=== PATIENT | female | born 1950 | race Caucasian/White ===

== ENCOUNTER 2016-08-08 12:39 | Emergency (ER) | payer MEDICARE, BC ==
[2016-08-08 13:08] VITALS: BP 149/104
--- NOTE | 2016-08-08 13:34 | UC ---
Cardiac HPI - HPI Summary HPI Summary: 66 year old female with complaints of left sided chest pain and left arm tightness while resting in bed watching tv this am. She reports she was evaluated by cardiology 2 years ago for similar symptoms and cleared. She experienced this pain while walking the dog in the morning 3 - 4 times a week for "awhile" but it passes with rest. She is also feeling dizzy. Dizziness onset with rolling over in bed 4 mornings ago. Hx of vertigo and did some maneuvers with mild relief. Having left side face and ear congestion. Pain and dizziness have resolved at this time. Denies fever or chills. Denies difficulty breathing. Denies nausea or vomiting - History of Current Complaint Chief Complaint: UC Stated Complaint: DIZZY Time Seen by Provider: 08/08/16 13:12 Hx Obtained From: Patient Onset/Duration: Sudden Onset, Lasting Hours - this morning, Resolved Initial Severity: Moderate Current Severity: None Chest Pain Location: Left Anterior - radiated into left arm Character: Tightness Aggravating: Nothing Alleviating: Nothing Associated Signs & Symptoms: Positive: Chest Pain, Dizziness. Negative: Vision Changes, Anxiety, Recent Stress, Headaches, Numbness, Tingling, SOB, Swelling, Syncope, Fever, Diaphoresis, Nausea/Vomiting, Palpitations, Cough, Hemoptysis, Back Pain, Abdominal Pain - Risk Factors Pulmonary Embolism Risk Factors: Negative Cardiac Risk Factors: Hypertension, Family History - father first MN at age 52 Atrial Fibrillation: Hypertension TAD Risk Factors: Hypertension AMI/ACS Risk Factors: Hypertension - Allergy/Home Medications Allergies/Adverse Reactions: Allergies Allergy/AdvReac Type Severity Reaction Status Date / Time Amoxicillin Allergy Hives Verified 08/08/16 13:01 Flu Virus Vaccine Allergy HIVES, Verified 08/08/16 13:01 SWELLING Indomethacin [From Indocin] Allergy disoriented Verified 08/08/16 13:01 PMH/Surg Hx/FS Hx/Imm Hx Previously Healthy: Yes Endocrine History Of: Denies: Diabetes, Thyroid Disease Cardiovascular History Of: Reports: Cardiac Disorders - MVP, Hypertension - ON MEDS Denies: Pacemaker/ICD Respiratory History Of: Reports: COPD, Asthma, Pneumonia GI/ History Of: Reports: Gastrointestinal Bleed Denies: Ulcer, Renal Disease Cancer History Of: Denies: Breast Cancer - Surgical History Surgical History: Yes Surgery Procedure, Year, and Place: Hysterectomy. SIGMOIDECTOMY. Tonsils - Family History Known Family History: Positive: Cardiac Disease - father at age 62 of [place]. His first [place] was age 52, Hypertension - Social History Alcohol Use: Daily Alcohol Amount: 2 glasses wine/day Substance Use Type: None Smoking Status (MU): Former Smoker Amount Used/How Often: PACK A DAY Have You Smoked in the Last Year: No When Did the Patient Quit Smoking/Using Tobacco: 1983 - Immunization History Most Recent Influenza Vaccination: none in 2013, ALLERGY Most Recent Tetanus Shot: 5-6 years ago Most Recent Pneumonia Vaccination: 2-3 years ago Review of Systems Constitutional: Fatigue Skin: Negative Eyes: Negative ENT: Ear Ache - left ear pressure Respiratory: Negative Cardiovascular: Chest Pain - tightness Gastrointestinal: Negative Genitourinary: Negative, Dysuria Motor: Negative Neurovascular: Negative Musculoskeletal: Negative Neurological: Negative Psychological: Negative All Other Systems Reviewed And Are Negative: Yes Physical Exam Triage Information Reviewed: Yes Appearance: No Pain Distress, Well-Nourished, Ill-Appearing - mildly Vital Signs: Initial Vital Signs Temp 97.1 F 08/08/16 13:02 Pulse 83 08/08/16 13:02 Resp 18 08/08/16 13:02 BP 149/104 08/08/16 13:02 Pulse Ox 98 08/08/16 13:02 Vital Signs Reviewed: Yes Eyes: Positive: Conjunctiva Clear. Negative: Discharge ENT: Positive: Hearing grossly normal, Pharynx normal, TM dull - bilaterally, Other: - no sinus pain or pressure with palpation. Negative: Nasal congestion, Nasal drainage, Tonsillar swelling Neck: Positive: Supple, Nontender, No Lymphadenopathy Respiratory: Positive: Lungs clear, Normal breath sounds Cardiovascular: Positive: RRR, No Murmur Musculoskeletal: Positive: Strength Intact, ROM Intact Neurological: Positive: Alert, Muscle Tone Normal Psychological: Positive: Age Appropriate Behavior - pleasant and cooperative Skin: Negative: rashes, breakdown - Assessment/Plan Course Of Treatment: EKG. transfer to ER for further evaluation and work up - Differential Diagnoses - Chest Pain Differential Diagnosis/HQI/PQRI: ACS - Differential Diagnoses - Hypertension Differential Diagnosis/HQI PQRI: Hypertension, Myocardial Infarction - Differential Diagnoses - Palpitations Differential Diagnosis/HQI/PQRI: Chronic Obstructive Pulmonary Disease - Clinical Impression Provider Diagnoses: Chest pain. Dizziness. Bilateral serous otitis - Physician Notifications Discussed Patient Care With: [place] [facility] [place] Discussed With Above Provider: 13:46 Instructed by Provider To: Transfer - via private car as patient wishes to emergency department Discharge - Discharge Plan Condition: Stable Disposition: [facility] Patient Education Materials: Serous Otitis Media (ED)
== END 2016-08-08 14:02 | disposition short-term general hospital (02) ==
LOC: UCEAST 12:39
DX: R07.89 Other chest pain (principal); R42 Dizziness and giddiness; H65.93 Unspecified nonsuppurative otitis media, bilateral; I10 Essential (primary) hypertension; I34.1 Nonrheumatic mitral (valve) prolapse; Z87.891 Personal history of nicotine dependence
CPT/HCPCS: 93005; 99212; G0463

== ENCOUNTER 2016-08-08 14:13 | Observation (INO) | payer MEDICARE, BC ==
[2016-08-08 15:59] LABS: Hematocrit 43 % (35-47); Hemoglobin 15.1 g/dl (12.0-16.0); Mean Corpuscular HGB Conc 35 g/dl (31-36); Mean Corpuscular Hemoglobin 34 pg (27-31); Mean Corpuscular Volume 96 fL (80-97); Mean Platelet Volume 7 um3 (7.4-10.4); Red Blood Count 4.47 10^6/ul (4.0-5.4); Red Cell Distribution Width 12 % (10.5-15); White Blood Count 7.1 10^3/ul (3.5-10.8)
--- NOTE | 2016-08-08 16:08 | RAD ---
Indication: Chest pain. Single frontal view of the chest performed at 1600 hours was reviewed. Comparison is made with previous exam dated October 13, 2014. No mediastinal shift is noted. Heart is of normal size and configuration. Lung umanzor appear clear. IMPRESSION: NO ACTIVE CARDIOPULMONARY DISEASE IS NOTED.
[2016-08-08 16:23] LABS: Albumin 4.3 g/dL (3.2-5.2); BUN/Creatinine Ratio 19.2 (8-20); Calcium 10.2 mg/dL (8.6-10.3); EGFR Non-African American 79.3 (>60); Globulin 3.3 g/dL (2-4); Magnesium 1.7 mg/dL (1.9-2.7); Potassium 3.3 mmol/L (3.5-5.0); Total Bilirubin 0.4 mg/dL (0.2-1.0); Total Protein 7.6 g/dL (6.4-8.9)
[2016-08-08] MEDS ORDERED: Potassium Chlor TAB* 20 MEQ TAB.ER PO ONE (17:15)
[2016-08-08] MEDS ORDERED: Nitroglycerin TAB 0.4 MG* 0.4 MG TAB SL ONE (17:17)
--- NOTE | 2016-08-08 17:29 | ED ---
Tarik Tinsley Adam, scribed for Luke Zaldivar MD on 08/08/16 at 1558 . Complex/Multi-Sys Presentation - HPI Summary HPI Summary: Pt is a 66 year old female presenting with CP and dizziness, nausea and diaphoresis. She states that she began feeling dizzy 3 days ago and thought it was vertigo. Since then she began having palpitations, particularly at night, and over the past couple of days she has been having intermittent chest tightness at rest. The pain is described as a 2/10 in severity and it radiates to the left arm. She has experienced pain like this before but typically when she is exerting herself. She came to the ED today because the CP has been occurring at rest. She also c/o nausea, SOB, and diaphoresis. She denies any edema. PMHx includes HTN, mitral valve prolapse, and COPD. Former tobacco user. FMHx of UT and CVA. - History Of Current Complaint Chief Complaint: EDChestPainROMI Time Seen by Provider: 08/08/16 15:49 Hx Obtained From: Patient Onset/Duration: Gradual Onset, Lasting Days, Still Present Timing: Intermittent, Lasting: Severity Currently: Moderate Severity Initially: Moderate Location: Pain At: - Chest, left arm Associated Signs And Symptoms: Positive: Dizziness, SOB, Nausea, Diaphoresis - Allergies/Home Medications Allergies/Adverse Reactions: Allergies Allergy/AdvReac Type Severity Reaction Status Date / Time Amoxicillin Allergy Hives Verified 08/08/16 15:04 Flu Virus Vaccine Allergy HIVES, Verified 08/08/16 15:04 SWELLING Indomethacin [From Indocin] Allergy disoriented Verified 08/08/16 15:04 PMH/Surg Hx/FS Hx/Imm Hx Endocrine/Hematology History: Denies: Hx Diabetes, Hx Thyroid Disease Cardiovascular History: Reports: Hx Hypertension - ON MEDS, Hx Valvular Heart Disease - MITRAL VALVE PROLAPSE, Other Cardiovascular Problems/Disorders - MITRAL VALVE Denies: Hx Pacemaker/ICD Respiratory History: Reports: Hx Asthma, Hx Chronic Obstructive Pulmonary Disease (COPD), Hx Pneumonia Denies: Hx Sleep Apnea, Other Respiratory Problems/Disorders GI History: Reports: Hx Diverticulosis, Hx Gastroesophageal Reflux Disease, Hx Gastrointestinal Bleed, Hx Hiatal Hernia, Other GI Disorders - DIVERTICULITIS Denies: Hx Ulcer History: Reports: Other Problems/Disorders - right kidney cyst(?) Denies: Hx Renal Disease Musculoskeletal History: Reports: Hx Arthritis - THUMBS, Hx Back Problems - TENS Denies: Hx Rheumatoid Arthritis, Hx Osteoporosis Sensory History: Reports: Hx Contacts or Glasses Denies: Hx Hearing Aid Opthamlomology History: Reports: Hx Contacts or Glasses Neurological History: Reports: Other Neuro Impairments/Disorders - TRANSIENT GLOBAL AMNESIA Psychiatric History: Denies: Hx Panic Disorder - Cancer History Hx Chemotherapy: No Hx Radiation Therapy: No - Surgical History Surgery Procedure, Year, and Place: Hysterectomy. SIGMOIDECTOMY. Tonsils Hx Anesthesia Reactions: No Infectious Disease History: No Infectious Disease History: Denies: Hx Hepatitis, Hx Human Immunodeficiency Virus (HIV), Traveled Outside the [place] in Last 30 Days - Family History Known Family History: Positive: Cardiac Disease - father at age 62 of [place]. His first [place] was age 52, Hypertension, Other - CVA - Social History Occupation: Retired Lives: With Family - Alcohol Use: Daily Alcohol Amount: 2 glasses wine/day Hx Substance Use: No Substance Use Type: Reports: None Hx Tobacco Use: Yes Smoking Status (MU): Former Smoker Amount Used/How Often: PACK A DAY Have You Smoked in the Last Year: No Review of Systems Positive: Skin Diaphoresis Positive: Chest Pain Positive: Shortness Of Breath Positive: Nausea Neurological: Other - Dizziness All Other Systems Reviewed And Are Negative: Yes Physical Exam - Summary Physical Exam Summary: VITAL SIGNS: Reviewed. GENERAL: Patient is a well developed and nourished female who is lying comfortable in the stretcher. Patient is not in any acute respiratory distress. HEAD AND FACE: No signs of trauma. No ecchymosis, hematomas or skull depressions. No sinus tenderness. EYES: PERRLA, EOMI x 2, No injected conjunctiva, no nystagmus. EARS: Hearing grossly intact. Ear canals and tympanic membranes are within normal limits. MOUTH: Oropharynx within normal limits. NECK: Supple, trachea is midline, no adenopathy, no JVD, no carotid bruit, no c- spine tenderness, neck with full ROM. CHEST: Symmetric, no tenderness at palpation LUNGS: Clear to auscultation bilaterally. No wheezing or crackles. CVS: Regular rate and rhythm, S1 and S2 present, no murmurs or gallops appreciated. ABDOMEN: Soft, non-tender. No signs of distention. No rebound no guarding, and no masses palpated. Bowel sounds are normal. EXTREMITIES: FROM in all major joints, no edema, no cyanosis or clubbing. NEURO: Alert and oriented x 3. No acute neurological deficits. Speech is normal and follows commands. SKIN: Dry and warm Triage Information Reviewed: Yes Vital Signs On Initial Exam: Initial Vitals Temp Pulse Resp BP Pulse Ox 97.6 F 78 18 166/92 97 08/08/16 15:03 08/08/16 15:03 08/08/16 15:03 08/08/16 15:03 08/08/16 15:03 Vital Signs Reviewed: Yes - [place] Coma Scale Coma Scale Total: 15 Diagnostics - Vital Signs Vital Signs Temp Pulse Resp BP Pulse Ox 08/08/16 15:03 97.6 F 78 18 166/92 97 - Laboratory Lab Results: Lab Results 08/08/16 08/08/16 08/08/16 Range/Units 15:49 15:49 15:49 WBC 7.1 (3.5-10.8) 10^3/ul RBC 4.47 (4.0-5.4) 10^6/ul Hgb 15.1 (12.0-16.0) g/dl Hct 43 (35-47) % MCV 96 (80-97) fL MCH 34 H (27-31) pg MCHC 35 (31-36) g/dl RDW 12 (10.5-15) % Plt Count 282 (150-450) 10^3/ul MPV 7 L (7.4-10.4) um3 Neut % (Auto) 63.7 (38-83) % Lymph % (Auto) 26.6 (25-47) % [place] % (Auto) 7.6 (1-9) % Eos % (Auto) 1.4 (0-6) % Baso % (Auto) 0.7 (0-2) % Absolute Neuts (auto) 4.5 (1.5-7.7) 10^3/ul Absolute Lymphs (auto) 1.9 (1.0-4.8) 10^3/ul Absolute Monos (auto) 0.5 (0-0.8) 10^3/ul Absolute Eos (auto) 0.1 (0-0.6) 10^3/ul Absolute Basos (auto) 0 (0-0.2) 10^3/ul Absolute Nucleated RBC 0.01 10^3/ul Nucleated RBC % 0.2 Sodium 133 (133-145) mmol/L Potassium 3.3 L (3.5-5.0) mmol/L Chloride 96 L (101-111) mmol/L Carbon Dioxide 29 (22-32) mmol/L Anion Gap 8 (2-11) mmol/L BUN 14 (6-24) mg/dL Creatinine 0.73 (0.51-0.95) mg/dL Est GFR ( Amer) 102.0 (>60) Est GFR (Non-Af Amer) 79.3 (>60) BUN/Creatinine Ratio 19.2 (8-20) Glucose 99 (70-100) mg/dL Calcium 10.2 (8.6-10.3) mg/dL Magnesium 1.7 L (1.9-2.7) mg/dL Total Bilirubin 0.40 (0.2-1.0) mg/dL AST 19 (13-39) U/L ALT 18 (7-52) U/L Alkaline Phosphatase 87 (34-104) U/L CK-MB (CK-2) 1.0 (0.6-6.3) ng/mL Myoglobin 22.6 (14.3-65.8) ng/mL Troponin I 0.00 (<0.04) ng/mL B-Natriuretic Peptide 12 ( - 100) pg/mL Total Protein 7.6 (6.4-8.9) g/dL Albumin 4.3 (3.2-5.2) g/dL Globulin 3.3 (2-4) g/dL Albumin/Globulin Ratio 1.3 (1-3) Result Diagrams: 08/08/16 15:49 08/08/16 15:49 Lab Statement: Any lab studies that have been ordered have been reviewed, and results considered in the medical decision making process. - Radiology CXR Xray Interpretation: No Acute Changes Radiology Interpretation Completed By: Radiologist - EKG 15:11 Cardiac Rate: NL - 66 BPM - Additional Comments Diagnostic Additional Comments: Troponin I - 0.00 Complex Multi-Symp Course/Dx Course Of Treatment: 17:20 - Hospitalist accepts patient for admission. Assessment/Plan: Pt is a 66 year old female presenting with CP and dizziness, nausea and diaphoresis. She states that she began feeling dizzy 3 days ago and thought it was vertigo. Since then she began having palpitations, particularly at night, and over the past couple of days she has been having intermittent chest tightness at rest. Blood work WNL except for K+ 3.4. She was given KCL. Troponin is 0.0. EKG shows no SON. CXR shows no acute pathology. In the ED course she was Aspirin. She developed another episode of CP at rest in the ED therefore she was given nitroglycerin and second EKG shows no SON. I discuss my physical exam, findings and test results with Dr. Smith from the hospitalist services and she agrees to admit patient to his services. Patient is hemodynamically stable alert and oriented x 3. - Diagnoses Differential Diagnoses/HQI/PQRI: Cardiac Ischemia Provider Diagnoses: Chest pain r/o AVS Discharge - Discharge Plan Condition: Stable Disposition: ADMITTED TO [facility] The documentation as recorded by the Tarik winston Adam accurately reflects the service I personally performed and the decisions made by me, Luke Zaldivar MD.
[2016-08-08] MEDS ORDERED: Omeprazole CAP* 20 MG PO SCH (21:00)
--- NOTE | 2016-08-08 21:08 | HP ---
HISTORY AND PHYSICAL: DATE OF ADMISSION: 08/08/16 PRIMARY CARE PROVIDER: Dr. Joiner. CHIEF COMPLAINT: Dizziness and chest pain. HISTORY OF PRESENT ILLNESS: Ms. Forbes is a 66-year-old female who states that she began feeling unwell either Saturday or Saturday night of this past week. She states that she woke up in the middle of the night with fluttering in her chest. On Saturday, she states that she woke up feeling dizzy. She felt that that this is likely her vertigo. She states that she felt very tired all day long and just in general felt unwell. She states that she tried the Maurice maneuver several times without any success. The patient states that when she is up and about, she feels off balance. She states that this is her only neurologic symptom. She does state that this is different from the last time she had vertigo as at that time everything seemed to spin. The patient has had no focal weakness, slurred speech, droopy face or any other concerning neurologic symptoms. The patient states each morning she walks the dogs. She usually developed chest pain that last 4 to 5 minutes while doing this. She states the pain resolved on its own. She states this morning she woke up and she had tightness in the left side of her chest radiating down to her left elbow. She states she was concerned because this occurred at rest as opposed to with ambulation. She felt very drained today. She had some mild shortness of breath with the associated chest tightness and states that she still feels slightly off balance when she is up and about. This morning she also felt pressure in the left side of her face. PAST MEDICAL HISTORY: 1. Hypertension. 2. Diverticulosis/diverticulitis. 3. Asthma. PAST SURGICAL HISTORY: 1. Sigmoidectomy for diverticulosis. 2. Hysterectomy. 3. Tonsillectomy. MEDICATIONS: 1. Hydrochlorothiazide 25 mg p.o. daily. 2. Aspirin 81 mg p.o. daily. 3. Diltiazem CD 120 mg p.o. daily. 4. Nexium 20 mg p.o. daily. 5. Singulair 10 mg p.o. daily. 6. Calcium plus D 1 tab p.o. daily. 7. Multivitamin 1 tab p.o. daily. 8. Loratadine 10 mg p.o. daily p.r.n. allergies. ALLERGIES: PENICILLIN, INDOCIN, FLU VACCINE and LISINOPRIL. FAMILY HISTORY: Mom following hip surgery. They believe she had either CVA or AR. She had had TIAs previously. Dad at the age of 62 from an AR. SOCIAL HISTORY: The patient is a former smoker, she quit approximately 33 years ago. She does drink alcohol on occasion. She is a retired occupational therapist. She is . Her , Joselito Forbes, is her healthcare proxy. REVIEW OF SYSTEMS: The patient denies any fevers, chills, or anorexia. She has noted occasional clammy hands. She admits to the chest discomfort as above. She has had occasional palpitations. No lower extremity edema. No cough. She had mild shortness of breath with her chest tightness. She has had nausea usually each morning. No abdominal pain. No diarrhea. She admits to constipation. No hematochezia. No hematuria. No dysuria. No focal weakness or sensory loss. No sudden changes in vision. No dysphagia. She does complain of mild left knee pain. No rashes, anxiety or depression. PHYSICAL EXAMINATION GENERAL: The patient is a well-developed middle-aged female, sitting in the stretcher, in no acute distress. VITAL SIGNS: Blood pressure 160/92, pulse 72, respirations 12, temp 97.6, O2 sat 95% on room air. HEENT: Pupils are equal. They are round. They react to light. Extraocular muscles are intact. Oropharynx is clear. Oral mucosa is moist. There is no submandibular, cervical or supraclavicular adenopathy. Thyroid is not enlarged. No thyroid nodules are noted. PULMONARY: Lungs are clear to auscultation bilaterally. CARDIAC: Normal S1 and S2. Regular rate and rhythm. I do not appreciate any murmurs. There is no lower extremity edema. ABDOMEN: Bowel sounds present. Abdomen is soft, nontender, nondistended. MUSCULOSKELETAL: There is no cyanosis or clubbing in the digits. There is full active range of motion of all 4 extremities. SKIN: Warm and dry. There are no rashes. NEUROLOGIC: Cranial nerves II through XII are grossly intact. Sensation is intact to light touch throughout. Strength is 5/5 and symmetric in both upper and lower extremities bilaterally. PSYCH: The patient is alert. She is oriented x3. Affect appears appropriate. LABORATORY DATA: WBC 7.1, hemoglobin 15.1, hematocrit 43, platelets 282. Sodium 133, potassium 3.3, chloride 96, CO2 is 29, BUN 14, creatinine 0.73, glucose 99, calcium 10.2, magnesium 1.7, bilirubin 0.4. AST 19, ALT 18, alk phos 87, CK-MB 1, myoglobin 22.6, troponin 0, BNP 12, albumin 4.3. DIAGNOSTIC DATA: Chest x-ray, no acute pulmonary process. EKG reveals normal sinus rhythm with questionable mild ST depression in the anterolateral leads, most notably in leads V4 and 5. ASSESSMENT AND PLAN: Ms. Forbes is a 66-year-old female with a history of hypertension and former tobacco abuse who presents to the emergency room with complaints of chest pain and dizziness. 1. Chest pain. The patient will be admitted to rule out acute coronary syndrome. Two more troponins have been ordered. The patient has had [address] depression seen in her first EKG seems slightly better, though again the ST depression is very mild in her first EKG. If the patient does rule out for an acute coronary artery syndrome, she will undergo stress test tomorrow. The patient will be maintained on her usual home medication regimen including her aspirin. 2. Dizziness. The patient describes the feeling of being off balance. She does not have any focal neurologic findings on exam. This could be some mild vertigo or an inner ear issue. The patient believes that she would be able to get on a treadmill without any difficulty, so I suspect this is a mild symptom for her. We will monitor her symptoms. 3. Hypertension. The patient's blood pressure is uncontrolled at this time. However, it is unclear if she has taken all of her medications today. For now, I will go ahead and hold adjusting her medication regimen. However, if her blood pressures remain in this range, she will need further adjustments in her medication regimen. 4. Gastroesophageal reflux disease. The patient will be maintained on a PPI. 5. Asthma. The patient will be maintained on her usual dose of Singulair. 6. DVT prophylaxis. According to the Adult Thrombosis Prophylaxis Risk Factor Assessment Guide, the patient has a total risk factor score of 2 making her moderate risk. She will be placed on heparin 5000 units subcutaneous q.12 hours. 7. Code status is full and the patient's , Joselito Forbes, is her healthcare proxy. TIME SPENT: Sixty minutes was spent admitting this patient. CC: Dr. Joiner * [id number]/[facility] #: [id number] MTDLuz Elena
[2016-08-08] MEDS: Heparin VIAL(*) 5000 UNITS/ML VIAL (FIVE THOUSAND) SUBCUT SCH (21:44)
[2016-08-08] MEDS: Diltiazem CD CAP* 120 MG PO SCH (22:29)
[2016-08-08] MEDS: Aspirin EC Low Dose* 81 MG TAB.EC PO SCH (22:29)
[2016-08-09] MEDS ORDERED: Montelukast Sodium TAB* 10 MG PO SCH (09:00)
[2016-08-09] MEDS ORDERED: Hydrochlorothiazide TAB* 25 MG PO SCH (09:00)
[2016-08-09] MEDS ORDERED: Diltiazem CD CAP* 120 MG PO SCH (09:00)
[2016-08-09] MEDS ORDERED: Multivitamins/Minerals TAB PO SCH (09:00)
[2016-08-09] MEDS ORDERED: Aspirin EC Low Dose* 81 MG TAB.EC PO SCH (09:00)
[2016-08-09] MEDS: Heparin VIAL(*) 5000 UNITS/ML VIAL (FIVE THOUSAND) SUBCUT SCH (09:24)
[2016-08-09] MEDS: Aspirin EC Low Dose* 81 MG TAB.EC PO SCH (11:59)
[2016-08-09] MEDS: Diltiazem CD CAP* 120 MG PO SCH (11:59)
--- NOTE | 2016-08-09 12:39 | RAD ---
Edited for charges. INDICATION: Chest pain in a former smoker with high blood pressure and family history of heart disease. COMPARISON: Chest x-ray dated August 08, 2016 TECHNIQUE: SPECT imaging was performed. Rest images were acquired following the intravenous injection of 10 millicuries of technetium 99m tetrofosmin at 0630 hours. At 1041 hours stress images were acquired following the intravenous administration of 25 millicuries of technetium 99m tetrofosmin. Exercise stress achieved a peak heart rate of 141 bpm, 93% of the predicted 152 bpm. FINDINGS: There are no defects of the stress-induced or fixed nature. The cardiac chamber size is normal. There are no wall motion abnormalities. The ejection fraction is calculated at 74% on stress imaging. IMPRESSION: No scintigraphic evidence of ischemia or infarction. ASSESSMENT: Low risk Based on imaging criteria from ACC/AHA 2002 Guideline Update for the Management of Patients With Chronic Stable Angina Table 23. Noninvasive Risk Stratification. MTDD
[2016-08-09 13:35] VITALS: BP 137/95
--- NOTE | 2016-08-10 00:31 | DS ---
DISCHARGE SUMMARY: DATE OF ADMISSION: 08/08/16 DATE OF DISCHARGE: 08/09/16 PRIMARY CARE PROVIDER: Dr. Snow Joiner. DISCHARGE DIAGNOSES: 1. Chest pain, acute coronary syndrome ruled out. 2. Possible uncontrolled hypertension. 3. Dizziness. SECONDARY DIAGNOSES: 1. Hypertension. 2. Diverticulosis/diverticulitis. 3. Asthma. 4. Status post sigmoidectomy for diverticulosis. 5. Status post hysterectomy. 6. Status post tonsillectomy. MEDICATION LIST: All of the medications listed are new: 1. Aspirin 81 mg p.o. daily. 2. Calcium carbonate 1 tablet p.o. daily. 3. Diltiazem 120 mg p.o. daily. 4. Esomeprazole 20 mg p.o. at bedtime. 5. Hydrochlorothiazide 25 mg p.o. daily. 6. Loratadine 10 mg p.o. daily as needed for allergies. 7. Montelukast 10 mg p.o. daily. 8. Multivitamin 2 tablets p.o. daily. HOSPITAL COURSE: Mrs. Forbes is a 66-year-old lady with a past medical history as stated above that presented initially to the [facility] and then to the emergency room with complaints of dizziness and chest pain. For more details about her presentation, I refer you to her history and physical dictated by Dr. Miller. The patient was admitted to the telemetry floor where she had no significant arrhythmia. Serial troponins were negative and the patient underwent exercise Myoview stress test that showed no scintigraphic evidence of ischemia or infarction and the calculated ejection fraction was 74% on stress imaging. I believe the patient's symptoms maybe associated with elevated blood pressure as in the emergency room she has blood pressure readings close to 170/95. The patient was not measuring her blood pressure at home, so it is unclear for how long her numbers have been elevated. Her numbers are better at this time and her symptoms have resolved. So, I suspect her dizziness and chest pain could be associated with it as well as her subtle ST depressions on her initial EKG that had also resolved. I believe the best course of action at this point is for the patient to monitor her blood pressure readings at home and take them to her followup appointment with Dr. Joiner on 08/14/16. At that time, depending on what numbers she gets, they could consider increasing her diltiazem dose or even adding a third agent as her heart rate has been in the 60s to 70s. The patient states that she is compliant with her medications. This could be associated with dietary indiscretions over the holidays as she has not measured her blood pressure for a while, so we do not for how long she has had these higher readings. She is much improved at this time and although she had episodes of vertigo in the past, I believe the dizziness she experienced could be associated with elevated blood pressure also as she felt that this episode was different from the prior one and it is now resolved. The patient received education regarding her diagnosis, low salt diet, blood pressure monitoring, and she was advised about signs and symptoms that should prompt her return to the emergency room. PHYSICAL EXAMINATION: Vital Signs: Temperature 98.5, heart rate is 71, respiratory rate is 16, oxygen saturation is 97% on room air, blood pressure is 137/95. General: The patient is a pleasant lady, sitting up in bed, in no acute distress. CVS: Normal S1, S2. Regular rate and rhythm. Chest: Breath sounds bilateral with no added sounds. Extremities: No edema. Neuro: She is alert, awake, oriented x3. Able to move all 4 extremities. DIET: Low salt diet. ACTIVITY: As tolerated. DISPOSITION: To home. STATUS WHILE IN THE HOSPITAL: Observation. Please keep in mind that this is a summarized version of this patient's hospital stay. If you need more information, please feel free to call me at or please obtain the full medical records. TIME SPENT: Approximately 45 minutes were spent to complete this discharge. CC: Dr. Snow Joiner; Zeinab Byrne NP * [id number]/LAUREL #: [id number] [facility]ALTH[facility]uz Elena
== END 2016-08-09 13:55 | disposition home or self-care (01) ==
LOC: ED 14:13 → MEDTELE 17:59
PROVIDERS: ADMIT Hospitalist; ATTEND Internal Medicine
DX: R07.9 Chest pain, unspecified (principal); R42 Dizziness and giddiness; I10 Essential (primary) hypertension; K21.9 Gastro-esophageal reflux disease without esophagitis; J45.909 Unspecified asthma, uncomplicated; Z79.899 Other long term (current) drug therapy; K57.30 Diverticulosis of large intestine without perforation or abscess without bleeding; I51.7 Cardiomegaly; R94.31 Abnormal electrocardiogram [ECG] [EKG]; Z79.82 Long term (current) use of aspirin; Z88.0 Allergy status to penicillin; Z88.8 Allergy status to other drugs, medicaments and biological substances; Z88.7 Allergy status to serum and vaccine; Z87.891 Personal history of nicotine dependence; R06.02 Shortness of breath
CPT/HCPCS: 36415; 71010; 78452; 80053; 82553; 83735; 83874; 83880; 84484; 85025; 93005; 93017; 96372; 99212; 99283; A9270-GY; A9502; G0378; G0463; J1644

== ENCOUNTER 2017-01-27 08:05 | Emergency (ER) | payer MEDICARE, BC ==
--- NOTE | 2017-01-27 08:11 | UC ---
Hip/Pelvis Pain - HPI Summary HPI Summary: 66 YEAR OLD FEMALE PRESENTS WITH HIP LEFT PAIN - History Of Current Complaint Stated Complaint: HIP PAIN Time Seen by Provider: 01/27/17 08:07 - Allergies/Home Medications Allergies/Adverse Reactions: Allergies Allergy/AdvReac Type Severity Reaction Status Date / Time Amoxicillin Allergy Hives Verified 08/08/16 15:04 Flu Virus Vaccine Allergy HIVES, Verified 08/08/16 15:04 SWELLING Indomethacin [From Indocin] Allergy disoriented Verified 08/08/16 15:04 Lisinopril Allergy Swelling Verified 08/08/16 18:19 Of Face,Lips,& Throat Propranolol [From Inderal] Allergy Unknown Verified 01/27/17 08:08 Reaction Details PMH/Surg Hx/FS Hx/Imm Hx - Surgical History Surgical History: Yes Surgery Procedure, Year, and Place: Hysterectomy. SIGMOIDECTOMY. Tonsils - Family History Known Family History: Positive: Cardiac Disease - father at age 62 of [place]. His first [place] was age 52, Hypertension, Other - CVA - Social History Alcohol Use: Daily Alcohol Amount: 2 glasses wine/day Substance Use Type: None Smoking Status (MU): Former Smoker Amount Used/How Often: PACK A DAY Have You Smoked in the Last Year: No When Did the Patient Quit Smoking/Using Tobacco: 1984 - Immunization History Most Recent Influenza Vaccination: none in 2013, ALLERGY Most Recent Tetanus Shot: 5-6 years ago Most Recent Pneumonia Vaccination: 2-3 years ago Review of Systems Constitutional: Negative Skin: Negative Eyes: Negative ENT: Negative Respiratory: Negative Cardiovascular: Negative Gastrointestinal: Negative Genitourinary: Negative Motor: Negative Neurovascular: Negative Musculoskeletal: Arthralgia, Myalgia, Other: - LEFT HIP Neurological: Negative Psychological: Negative All Other Systems Reviewed And Are Negative: Yes Physical Exam Triage Information Reviewed: Yes Eye Exam: Normal ENT Exam: Normal Dental Exam: Normal Neck exam: Normal Neck: Positive: 1 Respiratory Exam: Normal Cardiovascular Exam: Normal Abdominal Exam: Normal Musculoskeletal: Positive: Strength Limited @, ROM Limited @ Neurological Exam: Normal Psychological Exam: Normal Skin Exam: Normal Hip Injury Course/Dx - Differential Dx/Diagnosis Provider Diagnoses: HIP PAIN Discharge - Discharge Plan Condition: Stable Disposition: HOME Prescriptions: Methocarbamol TAB* [Robaxin 500 MG TAB*] 500 mg PO QID PRN #30 tab PRN Reason: Spasms - Back Methylprednisolone [Medrol Dosepak 4 MG*] 4 mg PO .SEE HARRISON [employer]CTION #21 tab Patient Education Materials: Hip Pain (ED) Referrals: Snow Joiner MD [Medical Doctor] - As Soon As Possible
[2017-01-27 08:24] VITALS: BP 129/69
== END 2017-01-27 08:40 | disposition home or self-care (01) ==
LOC: UCEAST 08:05
DX: M25.552 Pain in left hip (principal); Z87.891 Personal history of nicotine dependence
CPT/HCPCS: 99212; G0463

== ENCOUNTER 2017-01-29 22:40 | Emergency (ER) | payer MEDICARE, BC ==
[2017-01-29] MEDS ORDERED: Ketorolac INJ* 60 MG/2 ML VIAL IM ONE (23:25)
[2017-01-29] MEDS ORDERED: HYDROcodone/ACETAMIN 5-325 MG* 1 TAB PO ONE (23:25)
[2017-01-30] MEDS ORDERED: HYDROcodone/ACETAMIN 5-325 MG* 1 TAB PO ONE (01:39)
--- NOTE | 2017-01-30 02:12 | ED ---
Lower Extremity - HPI Summary HPI Summary: Patient presents to ED with worsening left hip pain over 10 days which has been radiating to the anterior thigh and lower left side of back. She denies known injury. She states she may have injured it while kayaking 10 days ago, but does not recall a trauma. She was seen in and was given prednisone and muscle relaxer. She was then seen by another practitioner (although not her PCP) and was given pain medicine. She had not yet had an image done. Today, she arrives with worsening pain and is tearful on arrival. She states the pain is unbearable and she is unable to sleep, ambulate or perforrm her daily activities. Pain is 8/10 and described as aching and throbbing. Denies numbness, tingling, color or temperature changes in the leg. Denies urinary symptoms. - History of Current Complaint Chief Complaint: EDExtremityLower Stated Complaint: SEVERE LEFT HIP PAIN, UNABLE TO SLEEP Time Seen by Provider: 01/29/17 23:09 Hx Obtained From: Patient Mechanism Of Injury: Unknown Onset of Pain: Days Onset/Duration: Weeks Severity Initially: Moderate Severity Currently: Moderate Pain Intensity: 9 Pain Scale Used: 0-10 Numeric Timing: Constant Location: Is Discrete @ - left hip and lower left back Character Of Pain: Aching, Throbbing Associated Signs And Symptoms: Positive: Negative Aggravating Factor(s): Standing, Ambulation, Weight Bearing Alleviating Factor(s): Rest Able to Bear Weight: Yes - Risk Factors Gout Risk Factors: Age Over 40 DVT Risk Factors: Negative Septic Arthritis Risk Factor: Negative - Allergies/Home Medications Allergies/Adverse Reactions: Allergies Allergy/AdvReac Type Severity Reaction Status Date / Time Amoxicillin Allergy Hives Verified 08/08/16 15:04 Flu Virus Vaccine Allergy HIVES, Verified 08/08/16 15:04 SWELLING Indomethacin [From Indocin] Allergy disoriented Verified 08/08/16 15:04 Lisinopril Allergy Swelling Verified 08/08/16 18:19 Of Face,Lips,& Throat Propranolol [From Inderal] Allergy Unknown Verified 01/27/17 08:08 Reaction Details PMH/Surg Hx/FS Hx/Imm Hx Previously Healthy: Yes Endocrine/Hematology History: Denies: Hx Diabetes, Hx Thyroid Disease Cardiovascular History: Reports: Hx Angina, Hx Hypertension, Hx Valvular Heart Disease - MITRAL VALVE PROLAPSE, Other Cardiovascular Problems/Disorders - MITRAL VALVE Denies: Hx Coronary Artery Disease, Hx Hypercholesterolemia, Hx Myocardial Infarction, Hx Pacemaker/ICD Respiratory History: Reports: Hx Asthma, Hx Pneumonia Denies: Hx Chronic Obstructive Pulmonary Disease (COPD), Hx Sleep Apnea, Other Respiratory Problems/Disorders GI History: Reports: Hx Diverticulosis, Hx Gastroesophageal Reflux Disease, Hx Gastrointestinal Bleed, Hx Hiatal Hernia, Other GI Disorders - Sigmoidectomy Denies: Hx Ulcer History: Reports: Other Problems/Disorders - right kidney cyst(?) Denies: Hx Renal Disease Musculoskeletal History: Reports: Hx Arthritis - THUMBS, Hx Back Problems - TENS , Other Musculoskeletal History - Multiple herniated disks Denies: Hx Rheumatoid Arthritis, Hx Osteoporosis Sensory History: Reports: Hx Contacts or Glasses Denies: Hx Hearing Aid Opthamlomology History: Reports: Hx Contacts or Glasses Neurological History: Reports: Other Neuro Impairments/Disorders - TRANSIENT GLOBAL AMNESIA Psychiatric History: Denies: Hx Panic Disorder - Cancer History Hx Chemotherapy: No Hx Radiation Therapy: No - Surgical History Surgery Procedure, Year, and Place: Hysterectomy. SIGMOIDECTOMY. Tonsils Hx Anesthesia Reactions: No Infectious Disease History: No Infectious Disease History: Denies: Hx Hepatitis, Hx Human Immunodeficiency Virus (HIV), Traveled Outside the [place] in Last 30 Days - Family History Known Family History: Positive: Cardiac Disease - father at age 62 of [place]. His first [place] was age 52, Hypertension, Other - CVA - Social History Occupation: Employed Full-time, Retired Lives: With Family Alcohol Use: Daily Alcohol Amount: 2 glasses wine/day Hx Substance Use: No Substance Use Type: Reports: None Hx Tobacco Use: Yes Smoking Status (MU): Former Smoker Do You Chew or Dip Tobacco: No Amount Used/How Often: PACK A DAY Have You Smoked in the Last Year: No Review of Systems Constitutional: Negative Eyes: Negative Cardiovascular: Negative Respiratory: Negative Positive: no symptoms reported, see HPI Positive: Arthralgia, Myalgia Skin: Negative Neurological: Negative Psychological: Normal All Other Systems Reviewed And Are Negative: Yes Physical Exam Triage Information Reviewed: Yes Vital Signs On Initial Exam: Initial Vitals Temp Pulse Resp BP Pulse Ox 96.8 F 68 16 159/85 97 01/29/17 22:44 01/29/17 22:44 01/29/17 22:44 01/29/17 22:44 01/29/17 22:44 Completion Of Physical Exam Limited Due To: Dementia Appearance: Positive: Pain Distress Skin: Positive: Warm, Skin Color Reflects Adequate Perfusion Head/Face: Positive: Normal Head/Face Inspection Eyes: Positive: EOMI, MYA, Conjunctiva Clear Neck: Positive: Supple, Nontender, No Lymphadenopathy Respiratory/Lung Sounds: Positive: Clear to Auscultation, Breath Sounds Present Cardiovascular: Positive: Normal, RRR, Pulses are Symmetrical in both Upper and Lower Extremities Musculoskeletal: Positive: Pain @ - Thorough physical exam was performed, focusing on thoracic and lumbar special tests and ROM. Due to patient pain around injury, physical exam was limited. Hip flexion and extension with pain. Knee extension, dorsiflexion, great toe extension and plantar flexion intact. Rotating at hips limited d/t pain. Nerve roots L4-S2 reflexes intact. L1-S2 nerve root sensory intact. No saddle anesthesia. Gait abnormal and unable to assess. Neurological: Positive: Sensory/Motor Intact, Alert, Oriented to Person Place, Time, Speech Normal Psychiatric: Positive: Normal AVPU Assessment: Alert - [place]acho Coma Scale Best Eye Response: 4 - Spontaneous Best Motor Response: 6 - Obeys Commands Best Verbal Response: 5 - Oriented Coma Scale Total: 15 Diagnostics - Vital Signs Vital Signs Temp Pulse Resp BP Pulse Ox 01/30/17 00:23 57 18 150/82 98 01/29/17 23:48 71 18 156/92 99 01/29/17 22:44 96.8 F 68 16 159/85 97 - Laboratory Lab Statement: Any lab studies that have been ordered have been reviewed, and results considered in the medical decision making process. Lower Extremity Course/Dx - Course Course Of Treatment: Patient sent to CT of left hip and lumbar spine. WNL. Patient given oxycodone and gabapentin. Continue muscle relaxers and ibuprofen. Follow up with PCP. CT scan results given to patient. - Diagnoses Differential Diagnosis/HQI/PQRI: Positive: Contusion, Dislocation, Fracture ( Closed), Fracture (Open) Provider Diagnoses: Hip pain Discharge - Discharge Plan Condition: Stable Disposition: HOME Prescriptions: Gabapentin CAP(*) [Neurontin 300 CAP(*)] 300 mg PO BEDTIME #15 cap oxyCODONE/Acetamin 10/325(NF) [Percocet 10/325 (NF)] 1 tab PO Q6H PRN #20 tab MDD 4 PRN Reason: Pain Patient Education Materials: Gabapentin (By mouth), Hip Pain (ED) Referrals: Zeinab Byrne NP [Primary Care Provider] - Additional Instructions: Follow up with Guera Byrne this week if possible Call office tomorrow Take Gabapentin 300mg at bedtime Pain medication as prescribed - up to 4 times daily You may take ibuprofen 600mg three times daily on opposite schedule of oxycodone Continue with muscle relaxer as prescribed Take the rest of your prednisone medication all in the morning to prevent insomnia It is beneficial to take the muscle relaxer and the pain medication immediately before bed to promote sleep
[2017-01-30 02:13] VITALS: BP 154/134
--- NOTE | 2017-01-30 07:51 | RAD ---
HISTORY: Left hip pain COMPARISONS: None TECHNIQUE: Multiple contiguous axial CT scans were obtained of the lumbar spine without intravenous contrast, with coronal and sagittal multiplanar reformations. FINDINGS: SPINAL CANAL: Evaluation of the central canal is limited on CT technique; however, there is no obvious canalicular mass or epidural hemorrhage. ALIGNMENT: There is a mild levoscoliotic curvature of the spine VERTEBRAL BODIES: The vertebral bodies are preserved in height. The bones are normal in attenuation. There is anterolateral marginal osteophyte formation at L2-L3. JOINTS: There is mild diffuse facet hypertrophic change MUSCULATURE: Unremarkable INTERVERTEBRAL DISCS: There is diffuse loss of intervertebral disc height throughout the spine. AXIAL IMAGES: T11-T12: There is no osseous neural foraminal narrowing or central canal stenosis. T12-L1: There is no osseous neural foraminal narrowing or central canal stenosis. L1-L2: There is no osseous neural foraminal narrowing or central canal stenosis. L2-L3: There is a mild disc bulge with bilateral facet hypertrophy. There is mild right neural foraminal narrowing. There is no significant osseous central canal stenosis.. L3-L4: There is no osseous neural foraminal narrowing or central canal stenosis. L4-L5: There is a mild disc bulge. There is no significant osseous neural foraminal narrowing or central canal stenosis. L5-S1: There is mild disc bulge. There is no osseous neural foraminal narrowing or central canal stenosis. SOFT TISSUES: Incidentally noted is a 2 cm nodule of the right adrenal measuring 20 Hounsfield units in attenuation. Imaging appearance is indeterminate. A hepatic cyst is noted. Calcified granulomas of the liver noted. OTHER: None IMPRESSION: 1. DEGENERATIVE DISC DISEASE AND OSTEOARTHRITIS. 2. THERE IS MILD RIGHT NEURAL FORAMINAL NARROWING AT L2-L3. THERE IS NO SIGNIFICANT OSSEOUS CENTRAL CANAL STENOSIS. 3. INCIDENTAL RIGHT ADRENAL NODULE. IMAGING APPEARANCE IS INDETERMINATE. IN THE ABSENCE OF A HISTORY OF MALIGNANCY, THIS CAN BE FURTHER EVALUATED WITH FOLLOW-UP ADRENAL PROTOCOL CT OR ADRENAL PROTOCOL MRI IN 12 MONTHS..
--- NOTE | 2017-01-30 07:52 | RAD ---
INDICATION: Left hip pain. COMPARISON: Correlation is made with a prior CT of the abdomen and pelvis from August 25, 2009. TECHNIQUE: Contiguous axial sections were obtained of the left hip. Images were reconstructed in the sagittal and coronal planes. FINDINGS: The bones are normal alignment. No joint effusion or fracture is seen. There is mild osteoarthritic change in the left hip. The patient appears to be status post hysterectomy. No soft tissue abnormalities are seen. IMPRESSION: MILD OSTEOARTHRITIC CHANGE IN THE LEFT HIP, NO EVIDENCE FOR FRACTURE.
== END 2017-01-30 02:19 | disposition home or self-care (01) ==
LOC: ED 22:40
DX: M25.552 Pain in left hip (principal); Z88.0 Allergy status to penicillin; I10 Essential (primary) hypertension; I34.1 Nonrheumatic mitral (valve) prolapse; Z87.891 Personal history of nicotine dependence
CPT/HCPCS: 72131; 96372; 99282; J1885